=== PATIENT | female | born 2000 | race Caucasian/White ===

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

== ENCOUNTER 2023-02-11 08:08 | Emergency (ER) | payer MEDICAID, SELFPAY ==
[2023-02-11 08:16] VITALS: BP 143/110; PULSE 113; RESP 16; TEMP 36.7; O2SAT 98
--- NOTE | 2023-02-11 08:27 | W.ED.FEMALGU ---
HPI - Female Genitourinary General: Chief complaint: Urogenital-Female Stated complaint: urinary Time Seen by Provider: 02/11/23 08:23 [facility] ED PFSH: Family History Mother Cancer ovarian Thyroid disease Social History Smoking and tobacco status: never smoked Alcohol intake: never Course Vital Signs: Vital signs: Vital Signs Temperature 98.1 F 02/11/23 08:16 Pulse Rate 113 H 02/11/23 08:16 Respiratory Rate 16 02/11/23 08:16 Blood Pressure 143/110 02/11/23 08:16 Pulse Oximetry 98 02/11/23 08:16 Oxygen Delivery Me thod Room Air 02/11/23 08:16 Discharge Plan Discharge Condition: Stable Prescriptions: No Action duloxetine 20 mg capsule,delayed release(DR/EC) 20 mg PO DAILY Referrals: Andrea Pascual DO [Primary Care Provider] - Coding Level of Care Code ED Railroad Mechanic for Tracie Schmid
--- NOTE | 2023-02-11 08:35 | W.ED.FEMALGU ---
HPI - Female Genitourinary General: Chief complaint: Urogenital-Female Stated complaint: urinary Time Seen by Provider: 02/11/23 08:23 Source: patient Mode of arrival: ambulatory Limitations: no limitations History of Present Illness: Patient is a 23-year-old female who presents to the emergency room complaining of dysuria onset 4-5 days. Patient reports sudden onset of burning sensation when she pees associated with some suprapubic abdominal pain. Initially symptoms were intermittent but 2 days ago they became constant. Reports a history of recurrent UTIs for which she was treated with antibiotics in the past. She comments that this feels different and that she has never had pain in her abdomen associated with past incidences. She reports associated chills, nausea, hematuria, and repetitive urge to urinate. She is sexually active but denies any history of STDs or possibility of . She reports [id number] Tylenol for her symptoms. She denies fever, vaginal discharge, back pain, flank pain, dizziness, or any other symptoms at this time. MD elicited complaint: dysuria Pertinent past history: recurrent UTIs Onset (ago): day(s) Location of symptoms: suprapubic Severity: mild Female Urogenital Radiation: Non-Radiating Quality of pain: cramping Consistency: constant and progressively worsening Vaginal discharge: none Vaginal bleeding: none Urinary symptoms: Hematuria and Urgency Exacerbating factors: none Associated symptoms: Reports abdominal pain and nausea; Deny headache(s), syncope or vaginal discharge Treatment prior to arrival: acetaminophen Sexual activity: Yes Patient : No Review of Systems General: Reports: 10 or more systems reviewed and unremarkable except in HPI and below Const: Reports: chills; Denies: fever(s), body aches, fatigue or malaise Eyes: Denies: change in vision or blurry vision Card: Denies: chest pain, palpitations, irregular heart rhythm, lightheadedness, syncope or dyspnea on exertion Resp: Denies: dyspnea, productive cough or pain on inspiration GI: Reports: abdominal pain and nausea; Denies: vomiting, diarrhea or constipation : Reports: dysuria, urinary urgency, urinary hesitancy and hematuria; Denies: flank pain, difficulty voiding, vaginal bleeding, vaginal discharge or pelvic pain Musc: Denies: neck pain, back pain or joint pain Skin/Breast: Denies: rash Neuro: Denies: headache(s) [facility] ED PFSH: Family History Mother Cancer ovarian Thyroid disease Social History Smoking and tobacco status: never smoked Alcohol intake: never Physical Exam Narrative: EXAM NARRATIVE: Well appearing and no acute distress. Const: COMMON NORMALS: no acute distress, patient oriented x3, no limitations, alert and well nourished GENERAL APPEARANCE: cooperative, comfortable and well kempt NUTRITIONAL APPEARANCE: overweight ORIENTATION/CONSCIOUSNESS: Yes awake, Yes oriented to person, Yes oriented to place and Yes oriented to time Resp: COMMON NORMALS: normal respiratory effort and clear to auscultation bilaterally AUSCULTATION: clear to auscultation bilaterally Cardio: COMMON NORMALS: regular rate and regular rhythm RATE: regular rate and tachycardic RHYTHM: regular rhythm GI: COMMON NORMALS: Normal to inspection, nondistended, normoactive bowel sounds present, Soft to palpation, No hepatosplenomegaly present and no masses INSPECTION: Yes normal to inspection AUSCULTATION: Yes normoactive bowel sounds PALPATION: Yes Soft to palpation, Yes Tenderness to palpation present (GI) (suprapubic), No Guarding due to palpation present (GI), No Rigid due to palpation and Yes No hepatosplenomegaly present : COMMON NORMALS: Yes no CVA tenderness BLADDER/KIDNEY EXAM: Yes no CVA tenderness Back/Pelvis: COMMON NORMALS: no CVA tenderness Neuro: COMMON NORMALS: patient oriented x3 SENSORIUM/ORIENTATION: Yes alert, Yes oriented to person, Yes oriented to place and Yes oriented to time Psych: COMMON NORMALS: cooperative and speech normal APPEARANCE: Yes well kempt SPEECH: Yes normal speech Skin: COMMON NORMALS: turgor normal GENERAL SKIN EXAM: turgor normal Course Vital Signs: Vital signs: Vital Signs Temperature 98.1 F 02/11/23 08:16 Pulse Rate 101 H 02/11/23 09:08 Respiratory Rate 16 02/11/23 08:16 Blood Pressure 138/99 02/11/23 09:08 Pulse Oximetry 97 02/11/23 09:08 Oxygen Delivery Me thod Room Air 02/11/23 09:08 MDM - Female Medical Decision Making Patient a 23-year-old here with complaints of dysuria, urinary urgency and frequency. She has some mild suprapubic abdominal pain. Denies lower back pain or flank pain. She has not had any fevers. UA today showing gross evidence of acute cystitis with 3+ blood, 2+ leukocyte esterase, and over 100 WBCs. We will culture. Patient will be placed on Macrobid and given Pyridium to help with the dysuria. Strict return to ED precautions given. was negative. Lab Data Laboratory Results HCG, Qual Negative (Negative) 02/11/23 08:34 Urine Color Dark yellow (Yellow) 02/11/23 08:35 Urine Appearance Cloudy (CLEAR) A 02/11/23 08:35 Urine pH 6 (5-7) 02/11/23 08:35 Ur Specific [place] 1.020 (1.005-1.030) 02/11/23 08:35 Urine Protein 2+ (Negative) H 02/11/23 08:35 Urine Glucose (UA) Norm (Normal) 02/11/23 08:35 Urine Ketones 2+ (Negative) H 02/11/23 08:35 Urine Blood 3+ (Negative) H 02/11/23 08:35 Urine Nitrate Negative (Negative) 02/11/23 08:35 Urine Bilirubin 1+ (Negative) H 02/11/23 08:35 Urine Urobilinogen 1 mg/dL (Negative) H 02/11/23 08:35 Ur Leukocyte Esterase 2+ (Negative) H 02/11/23 08:35 Urine RBC >100 /hpf (0-2) H 02/11/23 08:35 Urine WBC >100 /hpf (0-5) H 02/11/23 08:35 Ur Squamous Epith Cells 10-15 /hpf (0-5) H 02/11/23 08:35 Amorphous Sediment Not Reportable 02/11/23 08:35 Urine Bacteria 1+ /hpf (NONE) H 02/11/23 08:35 Discharge Plan Discharge Patient Disposition: Home Clinical Impression: Urinary tract infection Qualifiers: Urinary tract infection type: acute cystitis Hematuria presence: with hematuria Qualified Code(s): N30.01 - Acute cystitis with hematuria Condition: Stable Prescriptions: New Macrobid 100 mg capsule 100 mg PO BID 7 Days Qty: 14 0RF Rx Instructions: must administer with a meal/food Pyridium 100 mg tablet 100 mg PO Q8H PRN (Reason: pain) Qty: 6 0RF ondansetron 4 mg tablet,disintegrating 4 mg PO Q8H PRN (Reason: nausea and vomiting) Qty: 14 0RF No Action Kurvelo (28) 0.15-0.03 mg tablet 1 tab PO QAM Tylenol Ex Str Rapid Release 500 mg Tablet 1,000 mg PO Q6H PRN (Reason: Pain) duloxetine 30 mg capsule,delayed release(DR/EC) 30 mg PO QAM Discharge Orders: Discharge ED (Routine); Ordered 02/11/23 Ordered By: Michaela Coleman Referrals: Andrea Pascual DO [Primary Care Provider] - Patient Instructions: Urinary Tract Infection in Women (DC) Activity Restrictions/Additional Instructions: Urinalysis in the ED today revealed acute bacterial infection, and urine sample will be sent for culture. Please return if you develop any fevers, flank pain, inability to keep down medication, nausea or vomiting. Coding Level of Care Code ED Dermatologist And Dermatopathologist for Tracie Schmid
[2023-02-11 09:05] LABS: HCG Qualitative Urine. Negative (Negative)
[2023-02-11 09:06] LABS: Add Urine Culture? Yes; Add Urine Microscopic? YES; Bacteria Urine 1+ /hpf; Bilirubin Urine 1+ (Negative); Blood Urine 3+ (Negative); Glucose Urine UA Norm (Normal); Ketones Urine 2+ (Negative); Leukocyte Esterase Urine 2+ (Negative); Nitrate Urine Negative (Negative); Protein Urine 2+ (Negative); RBC Urine >100 /hpf (0-2); Urine Appearance Cloudy (CLEAR); Urine Color Dark Yellow (Yellow); Urobilinogen Urine 1 mg/dL (Negative); WBC Urine >100 /hpf (0-5); pH Urine 6 (5-7)
[2023-02-11 09:08] VITALS: BP 138/99; PULSE 101; O2SAT 97
[2023-02-11] MEDS: ondansetron 4 MG Tablet PO (09:29)
[2023-02-11 09:32] VITALS: BP 148/90; PULSE 104; O2SAT 95
== END 2023-02-11 09:33 | disposition home or self-care (01) ==
PROVIDERS: Emergency Provider Physician Assistant; PCP Family Medicine
DX: N30.01 Acute cystitis with hematuria (principal); Z79.899 Other long term (current) drug therapy
CPT/HCPCS: 81001; 81025; 87086; 87186; 99283; Q0162